=== PATIENT | female | born 1970 | race Caucasian/White ===

== ENCOUNTER 2017-11-02 22:36 | Emergency (ER) | payer BC | END 2017-11-02 23:12 | disposition left against medical advice (07) | LOC: SCSER 22:36 | DX: S90.425A Blister (nonthermal), left lesser toe(s), initial encounter (principal); W57.XXXA Bitten or stung by nonvenomous insect and other nonvenomous arthropods, initial encounter; Y92.830 Public park as the place of occurrence of the external cause | CPT/HCPCS: 99283 ==